=== PATIENT | male | born 1960 | race African-American/Black ===

== ENCOUNTER 2021-02-01 11:56 | Emergency (ER) | payer MEDICAID ==
[~2021-02-01] VITALS: Ht 170.2 cm; Wt 78.0 kg
[2021-02-01 12:04] VITALS: BP 129/66
[2021-02-01] MEDS ORDERED: ALBU6.7H9 INH (17:18)
== END 2021-02-01 17:32 | disposition home or self-care (01) ==
LOC: ER 11:56
DX: J06.9 Acute upper respiratory infection, unspecified (principal); R63.4 Abnormal weight loss
CPT/HCPCS: 99281

== ENCOUNTER 2021-04-17 10:03 | Emergency (ER) | payer MEDICAID ==
[~2021-04-17] VITALS: Ht 170.2 cm; Wt 75.0 kg
[~2021-04-17 10:03] MED LIST: ALBU6.7H9 INH
[2021-04-17] MEDS ORDERED: HYDROCODONE/ACETAMINOPHEN 5/325MG TABLET PO ONE (10:30)
[2021-04-17] MEDS ORDERED: BACITRACIN ZINC OINT UDPKT TOP ONE (10:30)
[2021-04-17 11:51] VITALS: BP 126/97
== END 2021-04-17 11:52 | disposition home or self-care (01) ==
LOC: ER 10:03
DX: S60.511A Abrasion of right hand, initial encounter (principal); M25.561 Pain in right knee; F17.210 Nicotine dependence, cigarettes, uncomplicated; W10.8XXA Fall (on) (from) other stairs and steps, initial encounter; Y93.89 Activity, other specified; Y92.018 Other place in single-family (private) house as the place of occurrence of the external cause
CPT/HCPCS: 73130; 73562; 99284

== ENCOUNTER 2021-12-07 08:58 | Emergency (ER) | payer MEDICAID, OTHER ==
[~2021-12-07] VITALS: Ht 170.2 cm; Wt 69.0 kg
[2021-12-07] MEDS ORDERED: HYDROCODONE/ACETAMINOPHEN 5/325MG TABLET PO ONE (10:30)
[2021-12-07 11:11] VITALS: BP 125/80
[2021-12-07] MEDS ORDERED: IBUPROFEN 600MG TABLET PO NR (11:30)
[2021-12-07] MEDS ORDERED: HYDR-4001 MT (11:36)
[2021-12-07] MEDS ORDERED: SENN-257 MT (11:36)
[2021-12-07] MEDS ORDERED: IBUP-2029 MT (11:36)
[2021-12-07] MEDS ORDERED: ONDA4TAB50 MT (11:36)
== END 2021-12-07 12:18 | disposition home or self-care (01) ==
LOC: ER 08:58
DX: S92.002A Unspecified fracture of left calcaneus, initial encounter for closed fracture (principal); F17.290 Nicotine dependence, other tobacco product, uncomplicated; W17.89XA Other fall from one level to another, initial encounter; Y93.89 Activity, other specified; Y92.89 Other specified places as the place of occurrence of the external cause; Y99.8 Other external cause status
CPT/HCPCS: 73610; 99283; 99406; Z7610